=== PATIENT | male | born 1965 | race Caucasian/White ===

== ENCOUNTER 2018-05-06 13:43 | Emergency (ER) | payer SELFPAY ==
[~2018-05-06] VITALS: Ht 172.7 cm; Wt 91.9 kg
[2018-05-06] MEDS ORDERED: IBUPROFEN400 MG PO (14:42)
[2018-05-06] MEDS ORDERED: CYCLOBENZAPRINE10 MG PO (14:43)
[2018-05-06] MEDS ORDERED: ULTRAM50 MG PO (14:44)
[2018-05-06 15:09] VITALS: BP 151/91
== END 2018-05-06 15:00 | disposition home or self-care (01) ==
LOC: FSED 13:43
DX: S39.012A Strain of muscle, fascia and tendon of lower back, initial encounter (principal); S29.012A Strain of muscle and tendon of back wall of thorax, initial encounter; X50.0XXA Overexertion from strenuous movement or load, initial encounter; Y92.008 Other place in unspecified non-institutional (private) residence as the place of occurrence of the external cause
CPT/HCPCS: 99283